=== PATIENT | male | born 1990 | race Two or more races ===

== ENCOUNTER 2021-08-28 11:49 | Emergency (ER) | payer SELFPAY ==
[~2021-08-28] VITALS: Ht 170.2 cm; Wt 129.7 kg
[2021-08-28 12:20] LABS: Basophils # (auto) 0.1 10 ^3/uL (0-0.2); Basophils % (auto) 1.1 % (0.0-2.0); Eosinophils # (auto) 0.1 10 ^3/uL (0-0.8); Eosinophils % (auto) 1.2 % (0.0-7.0); Hemoglobin 15.4 g/dL (13.5-17.5); Lymphocytes # (auto) 3.5 10 ^3/uL (0.4-5.4); Lymphocytes % (auto) 38.1 % (10.0-50.0); Mean Corpuscular Hemoglobin 27.9 pg (28.0-32.0); Mean Corpuscular Hgb Conc. 34.3 g/dL (32.0-36.0); Mean Corpuscular Volume 81.4 fL (80.0-100.0); Monocytes # (auto) 0.5 10 ^3/uL (0-1.3); Monocytes % (auto) 5.1 % (0.0-12.0); Neutrophils # (auto) 5.1 10 ^3/uL (1.6-8.6); Neutrophils % (auto) 54.5 % (37.0-80.0); Nucleated Red Blood Cells % 0.7 %; Red Blood Cells 5.53 10^6/uL (4.5-5.90); Red Cell Distribution Width 12.7 % (11.8-14.3); White Blood Cell 9.3 10^3/uL (4.4-10.8)
[2021-08-28 12:32] LABS: Albumin 3.7 g/dL (3.4-5.0); Calcium 8.8 mg/dL (8.5-10.1); Potassium 3.8 mmol/L (3.5-5.1)
[2021-08-28 12:38] LABS: BUN/Creatinine Ratio 12.9; Bilirubin, Total 0.3 mg/dL (0.2-1.0); Total Protein 8.1 g/dL (6.4-8.2)
[2021-08-29 00:05] VITALS: BP 140/82
== END 2021-08-29 00:08 | disposition home or self-care (01) ==
LOC: ER 11:49
DX: R07.89 Other chest pain (principal); E11.9 Type 2 diabetes mellitus without complications
CPT/HCPCS: 36415; 71046; 80053; 84484; 85025; 93005

== ENCOUNTER 2021-12-25 10:51 | Inpatient (IN) | payer MEDICAID, OTHER ==
[~2021-12-25] VITALS: Ht 170.2 cm; Wt 134.5 kg
[2021-12-25] MEDS ORDERED: cefTRIAXone 1GM/50ML D5W 50 ML IV ONE ×2 (11:45)
[2021-12-25] MEDS ORDERED: KETOROLAC TROMETH 30 MG/ML 1ML VIAL IV ONE (11:45)
[2021-12-25] MEDS ORDERED: SODIUM CHLORIDE 0.9% 1,000 ML IV ONE ×2 (11:45)
[2021-12-25] MEDS ORDERED: CLINDAMYCIN 900MG IV 50 ML IV ONE (12:00)
[2021-12-25 12:17] LABS: Hematocrit 40.9 % (41.0-53.0); Hemoglobin 13.8 g/dL (13.5-17.5); Mean Corpuscular Hemoglobin 27.9 pg (28.0-32.0); Mean Corpuscular Hgb Conc. 33.6 g/dL (32.0-36.0); Red Blood Cells 4.93 10^6/uL (4.5-5.90); Red Cell Distribution Width 12.4 % (11.8-14.3); White Blood Cell 11.1 10^3/uL (4.4-10.8)
[2021-12-25 12:23] LABS: Basophils % (manual) 0 (0.0-2.0); Blast Cells 0; Promyelocytes % 0; Reactive Lymphocytes 0
[2021-12-25 12:40] LABS: BUN/Creatinine Ratio 12.6; Calcium 9.4 mg/dL (8.5-10.1)
[2021-12-25] MEDS ORDERED: InsuLIN REG 1unit/0.01ml Soln (100units/ml) IV ONE ×2 (13:00→16:45)
[2021-12-25] MEDS ORDERED: POTASSIUM CHL 20 Meq TABLET PO ONE (13:00)
[2021-12-25 13:01] LABS: Band Neutrophils % (manual) 1; Eosinophils % (manual) 2 (0-7); Lymphocytes % (manual) 32 (10.0-50.0); Metamyelocytes % 1; Monocytes % (manual) 5 (0-12); Myelocytes % 1
[2021-12-25] MEDS ORDERED: DEXTROSE (50%) 50ML SYRG IV PRN (17:45)
[2021-12-25] MEDS: InsuLIN REG 1unit/0.01ml Soln (100units/ml) SC SCH (18:17)
[2021-12-25] MEDS: ACCU-CHEK COMFORT CURVE STRIP VI SCH ×2 (18:19→23:49)
[2021-12-25] MEDS: ONDANSETRON HCL 4 MG/2 ML VIAL IV PRN (20:19)
[2021-12-25] MEDS: MORPHINE SULFATE INJ 2 MG/ml SYRG IV PRN (20:20)
[2021-12-25 22:00] VITALS: BP 129/70
[2021-12-25] MEDS: CLINDAMYCIN 300MG IV 50 ML IV SCH (22:14)
[2021-12-26] MEDS: InsuLIN REG 1unit/0.01ml Soln (100units/ml) SC SCH ×5 (00:16→23:56)
[2021-12-26] MEDS: ONDANSETRON HCL 4 MG/2 ML VIAL IV PRN (00:18)
[2021-12-26] MEDS: MORPHINE SULFATE INJ 2 MG/ml SYRG IV PRN ×4 (00:19→19:08)
[2021-12-26 05:00] VITALS: BP 136/83
[2021-12-26] MEDS: CLINDAMYCIN 300MG IV 50 ML IV SCH ×3 (06:07→21:30)
[2021-12-26] MEDS: ACCU-CHEK COMFORT CURVE STRIP VI SCH ×4 (06:07→23:53)
[2021-12-26 07:44] VITALS: BP 118/74
[2021-12-26] MEDS: cefTRIAXone 1GM/50ML D5W 50 ML IV SCH (08:54)
[2021-12-26 12:10] LABS: Urine Bacteria NONE SEEN /hpf (None Seen); Urine Blood Negative /uL (Negative); Urine Budding Yeast OCCASIONAL /hpf (None Seen); Urine Hyaline Cast FEW /lpf (0 - 2); Urine Mucus FEW (None Seen); Urine Specific Gravity 1.033 (1.001-1.035); Urine WBC 7 /hpf (0 - 3)
[2021-12-26 13:00] VITALS: BP 144/83
[2021-12-26 16:24] VITALS: BP 128/77
[2021-12-26] MEDS: INSULIN LANTUS (GLARGINE) 1 /0.01ml (100units/ml) SC SCH (21:31)
[2021-12-26 21:58] VITALS: BP 103/61
[2021-12-27] MEDS: MORPHINE SULFATE INJ 2 MG/ml SYRG IV PRN ×2 (00:16→21:46)
[2021-12-27 05:06] VITALS: BP 119/75
[2021-12-27] MEDS: ACCU-CHEK COMFORT CURVE STRIP VI SCH ×3 (06:17→17:56)
[2021-12-27] MEDS: InsuLIN REG 1unit/0.01ml Soln (100units/ml) SC SCH ×3 (06:18→17:55)
[2021-12-27] MEDS: CLINDAMYCIN 300MG IV 50 ML IV SCH ×3 (06:23→21:44)
[2021-12-27 07:21] LABS: Albumin 2.5 g/dL (3.4-5.0); Calcium 8.8 mg/dL (8.5-10.1); INR 1.05 (0.9-1.15); Partial Thromboplastin Time 27.6 sec (23.6-33.0); Potassium 3.5 mmol/L (3.5-5.1)
[2021-12-27 07:25] LABS: BUN/Creatinine Ratio 16.2; Bilirubin, Total 0.3 mg/dL (0.2-1.0)
[2021-12-27 07:31] LABS: Cholesterol 200 mg/dL (< 200)
[2021-12-27 07:33] LABS: HDL Cholesterol 18 mg/dL (40-59); LDL Cholesterol 147 mg/dL (< 100); Triglycerides 242 mg/dL (< 150)
[2021-12-27 07:41] LABS: Hematocrit 38.3 % (41.0-53.0); Hemoglobin 13.2 g/dL (13.5-17.5); Mean Corpuscular Hemoglobin 28.2 pg (28.0-32.0); Mean Corpuscular Hgb Conc. 34.6 g/dL (32.0-36.0); Mean Corpuscular Volume 81.6 fL (80.0-100.0); Red Blood Cells 4.69 10^6/uL (4.5-5.90); Red Cell Distribution Width 12.5 % (11.8-14.3); White Blood Cell 8.2 10^3/uL (4.4-10.8)
[2021-12-27 07:43] LABS: Basophils % (manual) 0 (0.0-2.0); Blast Cells 0; Myelocytes % 0; Promyelocytes % 0; Reactive Lymphocytes 0
[2021-12-27 08:10] VITALS: BP 123/67
[2021-12-27] MEDS ORDERED: ceFAZolin 1GM VL ONE (08:14)
[2021-12-27] MEDS ORDERED: BUPIVACAINE 0.25% INJ 50ML VIAL ONE (08:14)
[2021-12-27 08:47] VITALS: BP 124/82
[2021-12-27] MEDS: cefTRIAXone 1GM/50ML D5W 50 ML IV SCH ×2 (09:00→09:37)
[2021-12-27] MEDS ORDERED: SUCCINYLCHOLINE CHLORIDE 20 MG/ML 10ML VIAL IV ONE (09:20)
[2021-12-27] MEDS ORDERED: MIDAZOLAM HCL 2MG/2ML 2ml VIAL (1mg/ml) ONE (09:22)
[2021-12-27] MEDS ORDERED: fentaNYL CITRATE 100 MCG/2 ML VL ONE (09:22)
[2021-12-27] MEDS ORDERED: METOCLOPRAMIDE HCL 5MG/ml INJ 2ml VIAL ONE (09:50)
[2021-12-27] MEDS ORDERED: ONDANSETRON HCL 4 MG/2 ML VIAL ONE (09:50)
[2021-12-27] MEDS ORDERED: LIDOCAINE 2% (LOCAL ANESTH.) PF 5ml SDV ONE (09:50)
[2021-12-27] MEDS ORDERED: PROPOFOL 10 MG/ML 20 ML IV ONE (09:50)
[2021-12-27] MEDS ORDERED: DexAMETHasone SOD PHOS 10MG/1ML VIAL INJ ONE (09:50)
[2021-12-27] MEDS ORDERED: GLYCOPYRROLATE 0.2 MG/ML 1ML VIAL ONE (10:31)
[2021-12-27] MEDS ORDERED: NEOSTIGMINE 1 MG/ML INJ (10mg/10ML VIAL) ONE (10:31)
[2021-12-27 10:38] LABS: Band Neutrophils % (manual) 17; Eosinophils % (manual) 4 (0-7); Lymphocytes % (manual) 34 (10.0-50.0); Metamyelocytes % 5; Monocytes % (manual) 16 (0-12)
[2021-12-27] MEDS ORDERED: METOCLOPRAMIDE HCL 5MG/ml INJ 2ml VIAL IV PRN (11:00)
[2021-12-27] MEDS ORDERED: ONDANSETRON HCL 4 MG/2 ML VIAL IV PRN (11:00)
[2021-12-27] MEDS ORDERED: fentaNYL CITRATE 100 MCG/2 ML VL IV PRN (11:00)
[2021-12-27] MEDS ORDERED: HYDROmorphone HCL 2 MG/ML VL/or syr IV PRN ×2 (11:00)
[2021-12-27] MEDS ORDERED: ACCU-CHEK COMFORT CURVE STRIP VI ONE (11:00)
[2021-12-27 12:01] VITALS: BP 123/67
[2021-12-27] MEDS: SODIUM CHLORIDE 0.9% 1,000 ML IV SCH (15:39)
[2021-12-27 17:00] VITALS: BP 106/62
[2021-12-27 22:00] VITALS: BP 108/46
[2021-12-27] MEDS: INSULIN LANTUS (GLARGINE) 1 /0.01ml (100units/ml) SC SCH (22:29)
[2021-12-28] MEDS: ACCU-CHEK COMFORT CURVE STRIP VI SCH ×4 (00:50→17:43)
[2021-12-28] MEDS: InsuLIN REG 1unit/0.01ml Soln (100units/ml) SC SCH ×4 (00:51→17:50)
[2021-12-28] MEDS: SODIUM CHLORIDE 0.9% 1,000 ML IV SCH ×2 (03:28→19:22)
[2021-12-28 05:00] VITALS: BP 100/49
[2021-12-28] MEDS: CLINDAMYCIN 300MG IV 50 ML IV SCH ×3 (05:49→21:33)
[2021-12-28 08:30] VITALS: BP 92/56
[2021-12-28 09:00] VITALS: BP 92/56
[2021-12-28] MEDS: cefTRIAXone 1GM/50ML D5W 50 ML IV SCH (09:17)
[2021-12-28] MEDS ORDERED: DEXTROSE (50%) 50ML SYRG IV PRN (10:30)
[2021-12-28 13:00] VITALS: BP 110/54
[2021-12-28 16:04] VITALS: BP 116/60
[2021-12-28] MEDS: metFORMIN HYDROCHLORIDE 500 MG TAB PO SCH (17:51)
[2021-12-28] MEDS: INSULIN LANTUS (GLARGINE) 1 /0.01ml (100units/ml) SC SCH (21:34)
[2021-12-28] MEDS: traMADol HCL 50 MG TAB PO PRN (21:38)
[2021-12-28 22:00] VITALS: BP 118/55
[2021-12-29] MEDS: ACCU-CHEK COMFORT CURVE STRIP VI SCH ×5 (00:21→23:24)
[2021-12-29] MEDS: InsuLIN REG 1unit/0.01ml Soln (100units/ml) SC SCH ×5 (00:23→23:24)
[2021-12-29] MEDS: SODIUM CHLORIDE 0.9% 1,000 ML IV SCH ×2 (02:41→22:00)
[2021-12-29 05:00] VITALS: BP 123/68
[2021-12-29] MEDS: CLINDAMYCIN 300MG IV 50 ML IV SCH ×3 (05:26→21:53)
[2021-12-29 06:10] LABS: Hemoglobin 12.9 g/dL (13.5-17.5); Mean Corpuscular Hemoglobin 27.4 pg (28.0-32.0)
[2021-12-29 06:14] LABS: Hematocrit 38.1 % (41.0-53.0); Mean Corpuscular Hgb Conc. 33.9 g/dL (32.0-36.0); Mean Corpuscular Volume 80.9 fL (80.0-100.0); Red Blood Cells 4.71 10^6/uL (4.5-5.90); Red Cell Distribution Width 12.5 % (11.8-14.3); White Blood Cell 7.7 10^3/uL (4.4-10.8)
[2021-12-29 06:26] LABS: BUN/Creatinine Ratio 14.3; Calcium 8.9 mg/dL (8.5-10.1)
[2021-12-29 06:34] LABS: Band Neutrophils % (manual) 0; Basophils % (manual) 0 (0.0-2.0); Blast Cells 0; Metamyelocytes % 0; Myelocytes % 0; Promyelocytes % 0; Reactive Lymphocytes 0
[2021-12-29 08:53] VITALS: BP 116/66
[2021-12-29] MEDS: metFORMIN HYDROCHLORIDE 500 MG TAB PO SCH ×2 (09:42→17:54)
[2021-12-29] MEDS: cefTRIAXone 1GM/50ML D5W 50 ML IV SCH (09:42)
[2021-12-29 10:08] LABS: Eosinophils % (manual) 3 (0-7); Lymphocytes % (manual) 38 (10.0-50.0); Monocytes % (manual) 8 (0-12)
[2021-12-29] MEDS ORDERED: POTASSIUM CHL 20 Meq TABLET PO ONE (12:00)
[2021-12-29 13:01] VITALS: BP 128/64
[2021-12-29 22:00] VITALS: BP 124/57
[2021-12-29] MEDS: INSULIN LANTUS (GLARGINE) 1 /0.01ml (100units/ml) SC SCH (22:00)
[2021-12-29] MEDS: traMADol HCL 50 MG TAB PO PRN (23:24)
[2021-12-30 05:00] VITALS: BP 122/60
[2021-12-30] MEDS: CLINDAMYCIN 300MG IV 50 ML IV SCH (05:52)
[2021-12-30] MEDS: ACCU-CHEK COMFORT CURVE STRIP VI SCH ×3 (05:52→17:07)
[2021-12-30] MEDS: InsuLIN REG 1unit/0.01ml Soln (100units/ml) SC SCH ×3 (05:54→17:07)
[2021-12-30 06:01] LABS: BUN/Creatinine Ratio 8.6; Calcium 9.1 mg/dL (8.5-10.1); Potassium 3.3 mmol/L (3.5-5.1)
[2021-12-30] MEDS: metFORMIN HYDROCHLORIDE 500 MG TAB PO SCH ×2 (08:34→18:29)
[2021-12-30] MEDS: cefTRIAXone 1GM/50ML D5W 50 ML IV SCH (08:34)
[2021-12-30 09:00] VITALS: BP 105/65
[2021-12-30] MEDS ORDERED: POTASSIUM CHL 20 Meq TABLET PO ONE (11:15)
[2021-12-30 13:00] VITALS: BP 113/63
[2021-12-30] MEDS: metroNIDAZOLE 500 MG TAB PO SCH ×2 (14:27→22:00)
[2021-12-30 17:00] VITALS: BP 101/59
[2021-12-30] MEDS: traMADol HCL 50 MG TAB PO PRN (21:11)
[2021-12-30 21:50] VITALS: BP 108/56
[2021-12-30] MEDS: INSULIN LANTUS (GLARGINE) 1 /0.01ml (100units/ml) SC SCH (22:02)
[2021-12-31] MEDS: ACCU-CHEK COMFORT CURVE STRIP VI SCH ×4 (00:35→18:00)
[2021-12-31 04:40] VITALS: BP 107/63
[2021-12-31] MEDS: metroNIDAZOLE 500 MG TAB PO SCH (06:00)
[2021-12-31] MEDS: InsuLIN REG 1unit/0.01ml Soln (100units/ml) SC SCH ×4 (06:05→18:00)
[2021-12-31 09:00] VITALS: BP 123/67
[2021-12-31] MEDS: levoFLOXacin 250 MG TAB PO SCH ×2 (09:37→12:44)
[2021-12-31] MEDS: metFORMIN HYDROCHLORIDE 500 MG TAB PO SCH ×2 (09:38→18:00)
[2021-12-31] MEDS ORDERED: DOCU-94 PO (11:22)
[2021-12-31] MEDS ORDERED: MET500T PO (11:22)
[2021-12-31] MEDS ORDERED: LEVO250T69 PO (11:22)
[2021-12-31 13:17] VITALS: BP 112/70
[2021-12-31 16:53] VITALS: BP 101/64
[2021-12-31 17:40] VITALS: BP 123/67
== END 2021-12-31 19:10 | disposition home or self-care (01) | DRG 357 ==
LOC: ER 10:51 → OVERFLOW 17:44 → EAST 20:23
PROVIDERS: ADMIT Registered Nurse; ATTEND Internal Medicine
PROC: 0JB90ZZ Excision of Buttock Subcutaneous Tissue and Fascia, Open Approach (ICD-10-PCS; principal; 2021-12-27 09:37)
DX: K61.39 Other ischiorectal abscess (principal); L02.31 Cutaneous abscess of buttock; I96 Gangrene, not elsewhere classified; Z68.41 Body mass index [BMI] 40.0-44.9, adult; K61.0 Anal abscess; E11.65 Type 2 diabetes mellitus with hyperglycemia; N18.2 Chronic kidney disease, stage 2 (mild); E66.01 Morbid (severe) obesity due to excess calories; E87.6 Hypokalemia; E78.1 Pure hyperglyceridemia; B96.1 Klebsiella pneumoniae [K. pneumoniae] as the cause of diseases classified elsewhere; E78.5 Hyperlipidemia, unspecified
CPT/HCPCS: 36415; 80048; 80053; 80061; 81001; 82962; 83036; 83605; 85007; 85027; 85610; 85730; 86850; 86900; 86901; 87040; 87070; 87075; 87077; 87186; 87205; 96365; 96367; 96375; G0378; J0330; J0690; J0696; J1100; J1815; J1885; J2001; J2250; J2405; J2704; J3490